=== PATIENT | male | born 1975 | race Hispanic/Latino ===

== ENCOUNTER 2018-10-18 01:01 | Emergency (ER) | payer OTHER ==
[2018-10-18] MEDS ORDERED: AZITHROMYCIN 250 MG TABLET PO ONE (02:26)
== END 2018-10-18 02:35 | disposition home or self-care (01) ==
LOC: EDH 01:01
DX: J15.9 Unspecified bacterial pneumonia (principal)
CPT/HCPCS: 71046; 93005